=== PATIENT | male | born 2000 | race Hispanic/Latino ===

== ENCOUNTER 2021-02-09 12:43 | Emergency (ER) | payer BC, SELFPAY ==
[2021-02-09 12:56] VITALS: BP 115/54; PULSE 76; RESP 16; TEMP 36.8; O2SAT 98
--- NOTE | 2021-02-09 13:44 | ED.SKABFB ---
HPI - Skin/Abscess/Foreign Bdy General Chief complaint: Skin/Abscess/Foreign Body Stated complaint: bump on genital area Source: patient and RN notes reviewed Limitations: no limitations History of Present Illness HPI narrative: The patient, previously mostly healthy and sexually inactive, presents with penile skin eruption. Patient states he has about a 2 week long history of left, lateral penile shaft eruption that is itchy, essentially painless. Symptoms are mild, began around skin tag, unrelieved with OTC products like peroxide; his last intercourse with his ex was about 3 to 4 months ago. No frequency, urgency, dysuria discharge, other/prior rashes; patient financially declines further STD testing here [- he will be referred to public health department], Related Data Allergies Allergy/AdvReac Type Severity Reaction Status Date / Time No Known Allergies Allergy Unverified 09/18/17 11:45 Review of Systems Review of Systems: General/Constitutional: No weight loss,fever Eyes: N0: Redness,discharge Respiratory: Denies: Hemoptysis Gastrointestinal: No Vomiting, Bleeding-rectal Skin: No Lumps, REPORTS eruption Neurologic: No Focal Weakness,Sz PMFSH Comments At time of signature, agree with nursing past medical, and family history. There is no relevant family history pertinent to the presenting complaint Exam Narrative: General Appearance: Well appearing,Conjunctiva clear Mouth/Throat: Normal appearing, Normal lips, Supple Respiratory: Airway patent, No respiratory distress Abdomen: Soft, Non-tender, bilateral descended testicles no inguinal hernia circumcised phallus Skin: Circumcised phallus, lateral shaft with skin tag with surrounding quarter size MP eruption with excoriation; Really not punched-out, indurated nor raised border ; warm, Dry Neurological: A&O x3, Normal affect Course Vital Signs Vital signs: Vital Signs Temperature 98.2 F 02/09/21 12:56 Pulse Rate 76 02/09/21 12:56 Respiratory Rate 16 02/09/21 12:56 Blood Pressure 115/54 L 02/09/21 12:56 Pulse Oximetry 98 02/09/21 12:56 Temperature 98.2 F 02/09/21 12:56 Pulse Rate 76 02/09/21 12:56 Respiratory Rate 16 02/09/21 12:56 Blood Pressure 115/54 L 02/09/21 12:56 Pulse Oximetry 98 02/09/21 12:56 Discharge Plan Discharge Clinical Impression: Penile rash Patient Disposition: Home, Self-Care Condition: Stable Instructions: Sexually Transmitted Diseases (ED) Additional Instructions: Go to [facility] for higher testing [like syphilis/ RPR, etc] Take clindamycin, antibiotics with food; stop clindamycin if diarrhea occurs Keep photo log of area Prescriptions: New clindamycin HCl 300 mg capsule 300 mg PO BID 7 Days Qty: 14 RF: 0 fluconazole 150 mg tablet 150 mg PO WEEKLY Qty: 2 RF: 1 mupirocin 2 % ointment 1 applic TOPICAL TID Qty: 30 RF: 0 azithromycin 500 mg tablet 2,000 mg PO ONCE Qty: 4 RF: 0 Follow-up/Referrals: UNKNOWN,DOCTOR [Primary Care Provider] -
== END 2021-02-09 14:07 | disposition home or self-care (01) ==
PROVIDERS: Emergency Provider Emergency Medicine
DX: N48.89 Other specified disorders of penis (principal)
CPT/HCPCS: 99213; G0463

== ENCOUNTER 2021-12-10 08:13 | Emergency (ER) | payer OTHER, SELFPAY ==
--- NOTE | ~2021-12-10 | XR_ITS ---
EXAMINATION: XR abdomen/kub 1V DATE: 12/10/2021 08:58 INDICATION: Right lower quadrant abdominal pain. Hematuria. TECHNIQUE: A supine view of the abdomen was obtained. COMPARISON: None. FINDINGS: Couple non-2 mm densities projecting over the interpolar region of the left kidney suspicious for esther al stones although differential would include debris within the fecal stream in the transverse colon. No other evident urolithiasis in the abdomen or pelvis. No dilated loops of bowel to suggest obstruc tion. IMPRESSION: 1. A couple likely 1-2 mm left renal stones. Reviewed, dictated and finalized at location A.
[2021-12-10 08:29] VITALS: BP 109/58; PULSE 78; RESP 16; TEMP 36.8; O2SAT 100
--- NOTE | 2021-12-10 08:34 | ED.ABDPAIN ---
HPI - Abdominal Pain General Chief Complaint: Abdominal Pain Stated Complaint: abd pain Time Seen by Provider: 12/10/21 08:34 Source: patient Mode of arrival: ambulatory Limitations: no limitations History of Present Illness HPI narrative: 21 yo M presents with c/o intermittent R flank pain sometimes radiating to R lower ABD for 1 month. States sometimes pain is pretty bad . No fever/chills. Deneis N/V/D. No pain at this time. States earlier today he had R flank pain radiating into R ABD and testicle. Called his PCP and is concerned he has a kidney stone. No dysuria, frequency or urgency. States my doctor told me to come here for CT scan . Pt denies any concern for UTI. All systems reviewed and negative except as noted above. Related Data Allergies Allergy/AdvReac Type Severity Reaction Status Date / Time No Known Allergies Allergy Verified 12/10/21 08:22 Review of Systems Review of Systems: CONSTITUTIONAL: Denies fever, chills, or sweats. EYES: Denies visual changes, redness, or discharge. ENT: Denies rhinorrhea, congestion, sore throat, or otalgia. CARDIOVASCULAR: Denies chest pain, palpitations, or edema. RESPIRATORY: Denies cough or dyspnea. GASTROINTESTINAL: Denies abdominal pain, nausea, vomiting, or diarrhea. GENITOURINARY: Denies dysuria or hematuria. Reports intermittent right flank pain radiating to right lower abdomen x1 month. SKIN: Denies rash or itching. MUSCULOSKELETAL: Denies back pain, joint pain, or myalgia. NEUROLOGIC: Denies headache, numbness, or weakness. PSYCHIATRIC: Denies anxiety or depression. All other systems reviewed are negative, except as documented in HPI. PMFSH Social History Social History (Updated 10/05/21 @ 13:52 by Guillermina Martinez MA) Smoking status: Current every day smoker Alcohol intake: never Substance use: current Comments At time of signature, agree with nursing past medical, surgical, social and family history. There is no relevant family history pertinent to the presenting complaint. Exam Narrative: GENERAL: This is a well-nourished, well-developed patient, in no apparent distress. HEAD: normocephalic, atraumatic. EYES: PERRL. Sclera clear/white. Vision is grossly intact. EARS: External ears normal NOSE: External nose normal NECK: Neck supple, non-tender without lymphadenopathy, masses or thyromegaly. CARDIOVASCULAR: Regular rate and rhythm without murmurs, gallops, or rubs. RESPIRATORY: Clear to auscultation. Breath sounds equal bilaterally. No wheezes, rales, or rhonchi. GASTROINTESTINAL: Abdomen soft, non-tender, nondistended. Bowel sounds are active. No hepato-splenomegaly, or palpable masses. No guarding. SKIN: warm, Dry, intact with no suspicious lesions or rash, good texture and turgor. NEURO: awake, alert, and oriented to person, place and time. There were no obvious focal neurologic abnormalities. EXTREMITIES: No joint tenderness, effusion, or edema noted. BACK: No CVA tenderness. Course Course Level of Care: Express Care Visit Vital Signs Vital signs: Vital Signs Temperature 36.8 C 12/10/21 08:29 Pulse Rate 78 12/10/21 08:29 Respiratory Rate 16 12/10/21 08:29 Blood Pressure 109/58 L 12/10/21 08:29 Pulse Oximetry 100 12/10/21 08:29 Oxygen Delivery Room Air 12/10/21 08:29 Temperature 36.8 C 12/10/21 08:29 Pulse Rate 78 12/10/21 08:29 Respiratory Rate 16 12/10/21 08:29 Blood Pressure 109/58 L 12/10/21 08:29 Pulse Oximetry 100 12/10/21 08:29 Oxygen Delivery Room Air 12/10/21 08:29 Reviewed MDM - Abdominal Pain MDM Narrative Medical decision making narrative: UA 3+ urine. stones noted to L kidney. x-ray is poor imaging for stones. Is possible pt has kidney stone to R side also. He has no pain at this time. Will prescribe flomax and refer to urology. Also discussed calling his PCP for outpatient CT order. For any worsening of symptoms pt is aware he needs to go to the ER. Patient is aware of diagnos
[2021-12-10] MEDS: KETOROLAC 30 MG/ML VIAL (*BKC) IM (09:00)
== END 2021-12-10 09:22 | disposition home or self-care (01) ==
PROVIDERS: Emergency Provider Nurse Practitioner Family
DX: N20.0 Calculus of kidney (principal); F17.200 Nicotine dependence, unspecified, uncomplicated
CPT/HCPCS: 74018; 81003; 96372; 99213; G0463; J1885

== ENCOUNTER 2024-09-05 15:25 | Outpatient (CLI) | payer OTHER, SELFPAY ==
--- NOTE | ~2024-09-05 | US_ITS ---
EXAM: RENAL ULTRASOUND HISTORY: Unspecified abdominal pain COMPARISON: None FINDINGS: RIGHT KIDNEY: 10.0 x 5.0 x 5.8 cm. The parenchyma of the right kidney is unremarkable in echogenicity. No hydronephrosis or bulky renal calculi. LEFT KIDNEY: 11.1 x 5.3 x 4.8 cm No hydronephrosis. Two echogenic foci are identified within the left kidney. The first measures 8 mm and is located within the interpolar region. The second measures 7 mm and is located within the lower pole. The remainder of the parenchyma of the left kidney is otherwise unremarkable in echogenicity. BLADDER: The bladder is minimally distended, and otherwise unremarkable. IMPRESSION: Two nonobstructing left renal calculi. Remainder of examination is otherwise unremarkable. Reviewed, dictated and finalized at location A.
== END 2024-09-05 15:26 | disposition home or self-care (01) ==
PROVIDERS: PCP Nurse Practitioner Family; Visit Provider Nurse Practitioner Family
DX: R10.9 Unspecified abdominal pain (principal); N20.0 Calculus of kidney
CPT/HCPCS: 76775